=== PATIENT | male | born 1940 | race Caucasian/White ===

== ENCOUNTER 2023-08-17 16:39 | Inpatient (IN) | payer MEDICARE ==
[2023-08-17 18:20] LABS: Base Excess -12.5 mEq/L (-2.0 to +3.0); Calcium, Ionized (venous) 1.09 mmol/L (1.16-1.32); Chloride (VBG) 93 mmol/L (98-106); Hematocrit-VBG 39 % (42.0-52.0); Hemoglobin (Hb) 13.2 g/dL (12.6-17.4); Potassium (VBG) 5.23 mmol/L (3.70-5.30); Sodium 127 mmol/L (133-146)
[2023-08-17 18:24] LABS: Actual Bicarbonate (HCO3v) 11.9 mEq/L (22-28)
[2023-08-17 18:27] LABS: Hematocrit 33.2 % (42.0-52.0); Manual Diff?? YES; Mean Corpuscular HGB CONC 36.1 g/dL (32.0-36.0); Mean Corpuscular Hemoglobin 32.2 pg (27.0-31.0); Platelet Count 179 10x3/uL (130-400); RBC Distribution Width 13.9 % (11.5-14.5); Red Blood Cell (RBC) Count 3.73 mill/uL (4.70-6.10); White Blood Cell (WBC) Count 50.6 10x3/uL (4.8-10.8)
[2023-08-17 18:31] LABS: Delete Auto Diff?? YES
[2023-08-17 18:55] LABS: ALT (SGPT) 17 U/L (8-55); AST (SGOT) 29 U/L (5-34); Albumin 3.1 g/dL (3.4-4.8); Alkaline Phosphatase 94 U/L (40-110); Anion Gap 27 mmol/L (10-20); Bilirubin, Total 0.5 mg/dL (0.2-1.2); CK (CPK) 47 U/L (30-200); Calc. Creatinine Clearance 0 mL/min (70-130); Calcium 8.6 mg/dL (7.8-10.44); Chloride 93 mmol/L (98-107); Estimated GFR 4; Globulin 3.9 g/dL (2.4-3.5); Glucose 135 mg/dL (83-110); Lipase 23 U/L (8-78); Magnesium 2.7 mg/dL (1.6-2.6); Potassium 5.4 mmol/L (3.5-5.1); Sodium 124 mmol/L (136-145); Troponin I 0.038 ng/mL (< 0.028)
[2023-08-17 19:01] LABS: Carbon Dioxide 9 mmol/L (23-31); Critical Call Chemistry NUR.MH12 @1900
[2023-08-17 19:05] LABS: Band 8 % (5-11); Burr Cells MODERATE= 6-15 cells HPF (0-1); CellaVision Operator ID LAB.KB; Monocytes 10 % (0-10); Myelocyte 1 % (0-0); Neutrophil 81 % (42-75); Platelet Adequacy Comment Platelets Normal; Total Cell Count 100
[2023-08-17 19:06] LABS: BUN (Urea Nitrogen) 184 mg/dL (8.4-25.7)
[2023-08-17] MEDS ORDERED: Cefepime 2 GM VIAL ONE (20:16)
[2023-08-17] MEDS ORDERED: Vancomycin 1 GM/200 ML (FROZEN) BAG ONE (20:16)
[2023-08-17] MEDS ORDERED: Sodium Chloride 0.9% 100 ML ONE (20:17)
[2023-08-17] MEDS ORDERED: Ondansetron ODT 4 MG TAB PO PRN (21:11)
[2023-08-17] MEDS ORDERED: Acetaminophen 650 MG Suppository PR PRN (21:11)
[2023-08-17] MEDS ORDERED: Ondansetron PF 4 MG/2 ML Vial IVP PRN (21:11)
[2023-08-17] MEDS ORDERED: Bisacodyl 10 MG SUPP PR PRN (21:11)
[2023-08-17 23:30] LABS: Troponin I 0.039 ng/mL (< 0.028)
[2023-08-17] MEDS ORDERED: Vancomycin Dose by Levels Sliding Scale (Wt <71) FS SCH (23:30)
[2023-08-17 23:32] LABS: Bacteria/HPF 4+ HPF (None Seen); Bilirubin Negative (Negative); Blood, Urine 2+ (Negative); CAUTI Indications for Culture Alt mental st,lethar; Clarity Extra Turbid (Clear); Glucose, Urine (Dipstick) Normal (Negative); Ketone, Urine Negative (Negative); Leukocyte 250 Leu/uL (Negative); Nitrite Negative (Negative); Protein, Urine (Dipstick) 200 mg/dL (Neg-Trace); RBC/HPF Greater than 50 HPF (0-3); Specific Gravity, Urine 1.022 (1.002-1.036); Squamous Epithelial None Seen HPF (0-3); Urobilinogen Normal mg/dL (Less than 2); WBC/HPF Greater than 50 HPF (0-3)
[2023-08-17 23:33] LABS: Urine Culture Reflex Yes Yes
[2023-08-18] MEDS ORDERED: Dextrose 5% in Water 1,000 ML IV PRN (00:20)
[2023-08-18] MEDS ORDERED: Dextrose 50% Abboject 50 ML SYRINGE SLOW IVP PRN (00:20)
[2023-08-18] MEDS ORDERED: Glucagon 1 MG/ML KIT IM PRN (00:20)
[2023-08-18 01:14] LABS: Hemoglobin 11.1 g/dL (14.0-18.0); Manual Diff?? YES; Mean Corpuscular HGB CONC 35.8 g/dL (32.0-36.0); Mean Corpuscular Hemoglobin 31.3 pg (27.0-31.0); Mean Corpuscular Volume 87.3 fl (78.0-98.0); Mean Platelet Volume 10.8 fL (7.4-10.4); Platelet Count 141 10x3/uL (130-400); RBC Distribution Width 13.5 % (11.5-14.5); Red Blood Cell (RBC) Count 3.55 mill/uL (4.70-6.10); White Blood Cell (WBC) Count 42.2 10x3/uL (4.8-10.8)
[2023-08-18 01:17] LABS: Delete Auto Diff?? YES
[2023-08-18 01:38] LABS: Band 1 % (5-11); Burr Cells SLIGHT = 2-5 cells HPF (0-1); CellaVision Operator ID LAB.KB; Lymphocytes 1 % (21-51); Monocytes 8 % (0-10); Neutrophil 87 % (42-75); Platelet Adequacy Comment Platelets Normal; Polychromasia SLIGHT = 2-3 cells HPF (0-2); Reactive Lymphocytes 3 % (0-10); Smudge Cells 4.1 %; Total Cell Count 97
[2023-08-18 01:42] LABS: Troponin I 0.044 ng/mL (< 0.028)
[2023-08-18 01:47] LABS: Anion Gap 24 mmol/L (10-20); Calc. Creatinine Clearance 5 mL/min (70-130); Calcium 8.2 mg/dL (7.8-10.44); Carbon Dioxide 12 mmol/L (23-31); Chloride 93 mmol/L (98-107); Estimated GFR 5; Glucose 153 mg/dL (83-110); Potassium 5.3 mmol/L (3.5-5.1); Sodium 124 mmol/L (136-145)
[2023-08-18] MEDS: Sodium Bicarbonate 150 MEQ in Dextrose 5% in Water 1,000 ML IV SCH (01:56)
[2023-08-18 01:59] LABS: BUN (Urea Nitrogen) 200 mg/dL (8.4-25.7)
[2023-08-18 02:36] LABS: Creatinine, Urine Less than 20.00 mg/dL (63-166)
[2023-08-18 03:07] LABS: Protein, Urine Random Quant Greater than 2000 mg/dL (1-14)
[2023-08-18] MEDS: Piperacillin/Tazobactam 3.375 GM in Sodium Chloride 0.9% 100 ML IVPB SCH ×2 (04:36→10:36)
[2023-08-18] MEDS ORDERED: Piperacillin/Tazobactam 4.5 GM in Sodium Chloride 0.9% 100 ML IVPB SCH (06:00)
[2023-08-18] MEDS ORDERED: Vancomycin (BATCH) 1.5 GM in Premix 1 BAG IVPB SCH (09:00)
[2023-08-18] MEDS: Famotidine/PF 20 mg/2ml Vial SLOW IVP SCH (10:36)
[2023-08-18] MEDS: Enoxaparin 30 MG (0.3 mL) SYRINGE SC SCH (10:36)
[2023-08-18] MEDS: Famotidine 20 MG TAB PO SCH (10:42)
[2023-08-18 11:50] LABS: HBSAg Index 0.19 S/CO (0-0.99); Hep B Core Total Ab Non-Reactive (NonReactive); Hep B Core Total Index 0.16 S/CO (0-0.79); Hep B Surf Ag Non-Reactive S/CO (NonReactive); Hep C IgG Ab Non-Reactive S/CO (NonReactive); Hep C Index 0.09 S/CO (0-0.79)
[2023-08-18 12:01] LABS: HBSAB Concentration 51.79 mIU/mL; Hep B Surf AB Reactive (NonReactive)
[2023-08-18 16:32] LABS: Anion Gap 24 mmol/L (10-20); Calc. Creatinine Clearance 5 mL/min (70-130); Calcium 7.5 mg/dL (7.8-10.44); Carbon Dioxide 18 mmol/L (23-31); Chloride 87 mmol/L (98-107); Estimated GFR 5; Glucose 119 mg/dL (83-110); Potassium 4.8 mmol/L (3.5-5.1); Sodium 124 mmol/L (136-145)
[2023-08-18 16:43] LABS: BUN (Urea Nitrogen) 171 mg/dL (8.4-25.7)
[2023-08-19 04:28] LABS: #Monocytes 3.7 thou/uL (0.11-0.59); #Neutrophils 17.9 thou/uL (1.40-6.50); %Basophils 0.1 % (0.0-1.0); %Lymphocytes 3.9 % (21.0-51.0); %Monocytes 15.9 % (0.0-10.0); %Neutrophils 76.2 % (42.0-75.0); Hematocrit 25.7 % (42.0-52.0); Hemoglobin 9.5 g/dL (14.0-18.0); Mean Corpuscular Hemoglobin 31.6 pg (27.0-31.0); Mean Corpuscular Volume 85.4 fl (78.0-98.0); Mean Platelet Volume 11.2 fL (7.4-10.4); Platelet Count 113 10x3/uL (130-400); RBC Distribution Width 13.2 % (11.5-14.5); Red Blood Cell (RBC) Count 3.01 mill/uL (4.70-6.10); White Blood Cell (WBC) Count 23.5 10x3/uL (4.8-10.8)
[2023-08-19 04:46] LABS: Anion Gap 18 mmol/L (10-20); Calc. Creatinine Clearance 7 mL/min (70-130); Calcium 7.4 mg/dL (7.8-10.44); Carbon Dioxide 21 mmol/L (23-31); Chloride 90 mmol/L (98-107); Estimated GFR 6; Glucose 96 mg/dL (83-110); Potassium 4.3 mmol/L (3.5-5.1); Sodium 125 mmol/L (136-145)
[2023-08-19 04:57] LABS: BUN (Urea Nitrogen) 140 mg/dL (8.4-25.7)
[2023-08-19 05:00] LABS: Anisocytosis SLIGHT = 6-15 cells HPF (0-5); CellaVision Operator ID lab.dlt; Platelet Adequacy Comment Platelets Decreased; Polychromasia SLIGHT = 2-3 cells HPF (0-2); Schistocytes SLIGHT = 2-5 cells HPF (0-1)
[2023-08-19] MEDS: Heparin 5,000 UNITS/ML VIAL SC SCH (08:46)
[2023-08-19] MEDS ORDERED: Famotidine 20 MG TAB PO SCH (09:00)
[2023-08-19] MEDS: Midodrine HCl 5 MG TAB PO SCH ×2 (10:23→15:40)
[2023-08-19] MEDS: Phenol 177 ML BOT PO PRN (13:20)
[2023-08-19] MEDS: Piperacillin/Tazobactam 3.375 GM in Sodium Chloride 0.9% 100 ML IVPB SCH (13:20)
[2023-08-19] MEDS ORDERED: Melatonin 3 MG TAB PO SCH (21:00)
[2023-08-19] MEDS: Famotidine/PF 20 mg/2ml Vial SLOW IVP SCH (23:13)
[2023-08-19] MEDS: Famotidine 20 MG TAB PO SCH (23:14)
[2023-08-20 05:26] LABS: #Eosinphils 0.1 thou/uL (0.0-0.7); #Monocytes 2.2 thou/uL (0.11-0.59); #Neutrophils 17.5 thou/uL (1.40-6.50); %Basophils 0.2 % (0.0-1.0); %Eosinophils 0.4 % (0.0-10.0); %Lymphocytes 3.6 % (21.0-51.0); %Monocytes 10.1 % (0.0-10.0); %Neutrophils 81.6 % (42.0-75.0); Hematocrit 23.1 % (42.0-52.0); Hemoglobin 8.6 g/dL (14.0-18.0); Mean Corpuscular HGB CONC 37.2 g/dL (32.0-36.0); Mean Corpuscular Hemoglobin 30.7 pg (27.0-31.0); Mean Corpuscular Volume 82.5 fl (78.0-98.0); Mean Platelet Volume 10.8 fL (7.4-10.4); White Blood Cell (WBC) Count 21.5 10x3/uL (4.8-10.8)
[2023-08-20 05:30] LABS: Platelet Count 65 10x3/uL (130-400)
[2023-08-20 05:44] LABS: Anion Gap 15 mmol/L (10-20); BUN (Urea Nitrogen) 100 mg/dL (8.4-25.7); Calc. Creatinine Clearance 9 mL/min (70-130); Calcium 7.1 mg/dL (7.8-10.44); Carbon Dioxide 22 mmol/L (23-31); Chloride 96 mmol/L (98-107); Estimated GFR 8; Glucose 88 mg/dL (83-110); Potassium 4.1 mmol/L (3.5-5.1); Sodium 129 mmol/L (136-145)
[2023-08-20] MEDS: Lactated Ringer's 500 ML IV SCH (11:04)
[2023-08-21 04:19] LABS: Hematocrit 24.4 % (42.0-52.0); Manual Diff?? YES; Mean Corpuscular HGB CONC 36.9 g/dL (32.0-36.0); Mean Corpuscular Hemoglobin 31.1 pg (27.0-31.0); Mean Corpuscular Volume 84.4 fl (78.0-98.0); Mean Platelet Volume 11.9 fL (7.4-10.4); RBC Distribution Width 13.9 % (11.5-14.5); Red Blood Cell (RBC) Count 2.89 mill/uL (4.70-6.10); White Blood Cell (WBC) Count 22.8 10x3/uL (4.8-10.8)
[2023-08-21 04:22] LABS: Platelet Count 60 10x3/uL (130-400)
[2023-08-21 04:23] LABS: Delete Auto Diff?? YES
[2023-08-21 04:38] LABS: Anion Gap 15 mmol/L (10-20); BUN (Urea Nitrogen) 64 mg/dL (8.4-25.7); Calc. Creatinine Clearance 11 mL/min (70-130); Calcium 7.3 mg/dL (7.8-10.44); Carbon Dioxide 22 mmol/L (23-31); Chloride 98 mmol/L (98-107); Estimated GFR 11; Glucose 100 mg/dL (83-110); Sodium 131 mmol/L (136-145)
[2023-08-21 05:04] LABS: Anisocytosis SLIGHT = 6-15 cells HPF (0-5); Band 2 % (5-11); CellaVision Operator ID lab.sh2; Hypochromia SLIGHT = 6-15 cells HPF (0-5); Lymphocytes 3 % (21-51); Macrocytosis SLIGHT = 6-15 cells HPF (0-5); Monocytes 16 % (0-10); Neutrophil 79 % (42-75); Platelet Adequacy Comment Platelets Decreased; Polychromasia SLIGHT = 2-3 cells HPF (0-2); Target Cells MODERATE= 6-15 cells HPF (0-1); Total Cell Count 100
[2023-08-21] MEDS: Meropenem 1 GM in Sodium Chloride 0.9% 100 ML IVPB SCH (10:02)
[2023-08-21] MEDS: FLU VACC QS2023(65UP)/MF59C/PF 60 MCG/0.5 ML SYRINGE IM ONE (10:03)
[2023-08-21] MEDS ORDERED: Meropenem 1 GM in Sodium Chloride 0.9% 100 ML IVPB SCH (14:00)
[2023-08-21] MEDS: EPOETIN ALFA-EPBX (ESRD) 2,000 UNITS/ML VIAL SC SCH (22:03)
[2023-08-21] MEDS: EPOETIN ALFA-EPBX (ESRD) 3,000 UNITS/ML VIAL SC SCH (22:03)
[2023-08-21] MEDS: Epoetin (ESRD) 20,000 UNITS/ML MDV SC SCH (23:55)
[2023-08-22 04:32] LABS: Hematocrit 26.7 % (42.0-52.0); Hemoglobin 9.6 g/dL (14.0-18.0); Manual Diff?? YES; Mean Corpuscular Hemoglobin 30.3 pg (27.0-31.0); Mean Corpuscular Volume 84.2 fl (78.0-98.0); Mean Platelet Volume 11.5 fL (7.4-10.4); RBC Distribution Width 14.5 % (11.5-14.5); Red Blood Cell (RBC) Count 3.17 mill/uL (4.70-6.10); White Blood Cell (WBC) Count 26.1 10x3/uL (4.8-10.8)
[2023-08-22 04:36] LABS: Delete Auto Diff?? YES; Platelet Count 78 10x3/uL (130-400)
[2023-08-22 04:50] LABS: Anion Gap 16 mmol/L (10-20); BUN (Urea Nitrogen) 75 mg/dL (8.4-25.7); Calc. Creatinine Clearance 9 mL/min (70-130); Calcium 7.5 mg/dL (7.8-10.44); Carbon Dioxide 22 mmol/L (23-31); Chloride 96 mmol/L (98-107); Estimated GFR 8; Glucose 90 mg/dL (83-110); Potassium 4.2 mmol/L (3.5-5.1); Sodium 130 mmol/L (136-145)
[2023-08-22 05:08] LABS: Band 7 % (5-11); CellaVision Operator ID LAB.CLH1; Hypochromia SLIGHT = 6-15 cells HPF (0-5); Lymphocytes 6 % (21-51); Metamyelocyte 2 % (0-0); Monocytes 15 % (0-10); Neutrophil 67 % (42-75); Platelet Adequacy Comment Platelets Decreased; Polychromasia MODERATE = 3-4 cells HPF (0-2); Reactive Lymphocytes 4 % (0-10); Target Cells SLIGHT = 2-5 cells HPF (0-1); Total Cell Count 103
[2023-08-22] MEDS ORDERED: Heparin 10,000 UNITS/ 10 ML VIAL ONE (11:31)
[2023-08-22] MEDS ORDERED: Iopamidol-370 76% 500 ML MDV (1 ML CHARGE) ONE (12:14)
[2023-08-22] MEDS: Meropenem 500 MG in Sodium Chloride 0.9% 100 ML IVPB SCH (13:51)
[2023-08-22] MEDS ORDERED: Iopamidol-370 76% 500 ML BOT (X-RAY USE) FS ONE (13:58)
[2023-08-23] MEDS: Amiodarone 150 MG, Admixture Fee 1 EACH in Dextrose 5% in Water 100 ML IVPB SCH (00:55)
[2023-08-23] MEDS: Amiodarone 450 MG in Dextrose 5% in Water 250 ML IVPB SCH (00:56)
[2023-08-23] MEDS: Albumin 25% 25 GM (100 mL) BOT IVPB SCH (02:26)
[2023-08-23 04:42] LABS: Hematocrit 25.4 % (42.0-52.0); Hemoglobin 9.1 g/dL (14.0-18.0); Manual Diff?? YES; Mean Corpuscular HGB CONC 35.8 g/dL (32.0-36.0); Mean Corpuscular Hemoglobin 31.2 pg (27.0-31.0); Mean Platelet Volume 11.6 fL (7.4-10.4); Platelet Count 97 10x3/uL (130-400); RBC Distribution Width 14.6 % (11.5-14.5); Red Blood Cell (RBC) Count 2.92 mill/uL (4.70-6.10); White Blood Cell (WBC) Count 23.7 10x3/uL (4.8-10.8)
[2023-08-23 04:45] LABS: Anion Gap 13 mmol/L (10-20); BUN (Urea Nitrogen) 55 mg/dL (8.4-25.7); Calc. Creatinine Clearance 11 mL/min (70-130); Calcium 7.7 mg/dL (7.8-10.44); Carbon Dioxide 22 mmol/L (23-31); Chloride 98 mmol/L (98-107); Estimated GFR 10; Glucose 97 mg/dL (83-110); Potassium 3.7 mmol/L (3.5-5.1); Sodium 129 mmol/L (136-145)
[2023-08-23 04:47] LABS: Delete Auto Diff?? YES
[2023-08-23 05:37] LABS: Anisocytosis SLIGHT = 6-15 cells HPF (0-5); Band 1 % (5-11); CellaVision Operator ID lab.sh2; Large Platelets 4.9 % (0-5); Lymphocytes 10 % (21-51); Monocytes 22 % (0-10); Neutrophil 66 % (42-75); Platelet Adequacy Comment Platelets Decreased; Polychromasia SLIGHT = 2-3 cells HPF (0-2); Smudge Cells 6.8 %; Total Cell Count 103
[2023-08-24 04:55] LABS: Hematocrit 27.3 % (42.0-52.0); Hemoglobin 9.5 g/dL (14.0-18.0); Manual Diff?? YES; Mean Corpuscular HGB CONC 34.8 g/dL (32.0-36.0); Mean Corpuscular Hemoglobin 30.9 pg (27.0-31.0); Mean Corpuscular Volume 88.9 fl (78.0-98.0); Mean Platelet Volume 11.6 fL (7.4-10.4); Platelet Count 123 10x3/uL (130-400); RBC Distribution Width 14.3 % (11.5-14.5); Red Blood Cell (RBC) Count 3.07 mill/uL (4.70-6.10); White Blood Cell (WBC) Count 19.9 10x3/uL (4.8-10.8)
[2023-08-24 04:59] LABS: Delete Auto Diff?? YES
[2023-08-24 05:21] LABS: Troponin I 0.023 ng/mL (< 0.028)
[2023-08-24 05:31] LABS: Anion Gap 16 mmol/L (10-20); BUN (Urea Nitrogen) 63 mg/dL (8.4-25.7); Calc. Creatinine Clearance 10 mL/min (70-130); Carbon Dioxide 18 mmol/L (23-31); Chloride 97 mmol/L (98-107); Estimated GFR 9; Glucose 95 mg/dL (83-110); Magnesium 1.8 mg/dL (1.6-2.6); Potassium 3.8 mmol/L (3.5-5.1); Sodium 127 mmol/L (136-145)
[2023-08-24 05:58] LABS: Band 5 % (5-11); CellaVision Operator ID LAB.CLH1; Eosinophils 1 % (0-10); Hypochromia SLIGHT = 6-15 cells HPF (0-5); Lymphocytes 9 % (21-51); Metamyelocyte 6 % (0-0); Monocytes 20 % (0-10); Myelocyte 2 % (0-0); Neutrophil 56 % (42-75); Platelet Adequacy Comment Platelets Decreased; Polychromasia SLIGHT = 2-3 cells HPF (0-2); RBC Morphology Within Normal Limits; Reactive Lymphocytes 1 % (0-10); Target Cells SLIGHT = 2-5 cells HPF (0-1); Total Cell Count 100
[2023-08-24] MEDS ORDERED: Activase 2 MG VIAL CATH SCH (09:00)
[2023-08-24] MEDS ORDERED: Sterile Water 10 ML VIAL IVP SCH (09:00)
[2023-08-24] MEDS ORDERED: Heparin 10,000 UNITS/ 10 ML VIAL ONE (09:04)
[2023-08-24 15:34] LABS: Anion Gap 10 mmol/L (10-20); BUN (Urea Nitrogen) 27 mg/dL (8.4-25.7); Calc. Creatinine Clearance 20 mL/min (70-130); Calcium 8.2 mg/dL (7.8-10.44); Carbon Dioxide 25 mmol/L (23-31); Chloride 101 mmol/L (98-107); Estimated GFR 20; Glucose 101 mg/dL (83-110); Potassium 3.4 mmol/L (3.5-5.1); Sodium 133 mmol/L (136-145)
[2023-08-24] MEDS: Meropenem 500 MG in Sodium Chloride 0.9% 100 ML IVPB SCH (16:43)
[2023-08-25 05:01] LABS: Hematocrit 29.6 % (42.0-52.0); Hemoglobin 9.9 g/dL (14.0-18.0); Manual Diff?? YES; Mean Corpuscular HGB CONC 33.4 g/dL (32.0-36.0); Mean Corpuscular Hemoglobin 30.2 pg (27.0-31.0); Mean Corpuscular Volume 90.2 fl (78.0-98.0); Mean Platelet Volume 11.4 fL (7.4-10.4); Platelet Count 125 10x3/uL (130-400); RBC Distribution Width 14.3 % (11.5-14.5); Red Blood Cell (RBC) Count 3.28 mill/uL (4.70-6.10); White Blood Cell (WBC) Count 15.9 10x3/uL (4.8-10.8)
[2023-08-25 05:09] LABS: Delete Auto Diff?? YES
[2023-08-25 05:29] LABS: Anion Gap 13 mmol/L (10-20); BUN (Urea Nitrogen) 34 mg/dL (8.4-25.7); Calc. Creatinine Clearance 14 mL/min (70-130); Carbon Dioxide 23 mmol/L (23-31); Chloride 101 mmol/L (98-107); Estimated GFR 13; Glucose 90 mg/dL (83-110); Potassium 3.7 mmol/L (3.5-5.1); Sodium 133 mmol/L (136-145)
[2023-08-25 05:49] LABS: Anisocytosis SLIGHT = 6-15 cells HPF (0-5); Band 1 % (5-11); CellaVision Operator ID lab.sh2; Hypochromia MODERATE=16-30 cells HPF (0-5); Lymphocytes 12 % (21-51); Macrocytosis SLIGHT = 6-15 cells HPF (0-5); Monocytes 18 % (0-10); Neutrophil 69 % (42-75); Platelet Adequacy Comment Platelets Decreased; Polychromasia MODERATE = 3-4 cells HPF (0-2); Total Cell Count 100
[2023-08-25] MEDS: Acetaminophen 325 MG TAB PO PRN (08:46)
[2023-08-25] MEDS ORDERED: Lidocaine 2% PF 5 ML VIAL ONE (14:22)
[2023-08-25] MEDS ORDERED: Heparin 10,000 UNITS/ 10 ML VIAL ONE (14:22)
[2023-08-25] MEDS ORDERED: EPINEPHrine 1 MG/ML VIAL ONE (14:22)
[2023-08-25] MEDS ORDERED: Bupivacaine PF 0.5% 30 ML VIAL ONE (14:22)
[2023-08-25] MEDS ORDERED: fentaNYL 50 mcg/mL 1 mL Vial ONE (14:42)
[2023-08-25] MEDS ORDERED: PROPOFOL 20 ML ONE ×2 (14:43)
[2023-08-25] MEDS ORDERED: Lidocaine 1% (PF) 30 ML VIAL ONE (17:37)
[2023-08-26] MEDS: Sodium Chloride 0.9% 500 ML IV SCH (00:11)
[2023-08-26 05:54] LABS: Hematocrit 27.7 % (42.0-52.0); Hemoglobin 8.5 g/dL (14.0-18.0); Manual Diff?? YES; Mean Corpuscular HGB CONC 30.7 g/dL (32.0-36.0); Mean Corpuscular Hemoglobin 30.7 pg (27.0-31.0); Mean Platelet Volume 11.2 fL (7.4-10.4); Platelet Count 120 10x3/uL (130-400); RBC Distribution Width 14.6 % (11.5-14.5); Red Blood Cell (RBC) Count 2.77 mill/uL (4.70-6.10); White Blood Cell (WBC) Count 17.1 10x3/uL (4.8-10.8)
[2023-08-26 06:00] LABS: Delete Auto Diff?? YES
[2023-08-26 06:19] LABS: Anisocytosis SLIGHT = 6-15 cells HPF (0-5); Band 2 % (5-11); CellaVision Operator ID LAB.CLH1; Hypochromia SLIGHT = 6-15 cells HPF (0-5); Large Platelets 5.9 % (0-5); Lymphocytes 7 % (21-51); Macrocytosis SLIGHT = 6-15 cells HPF (0-5); Monocytes 17 % (0-10); Myelocyte 1 % (0-0); Neutrophil 73 % (42-75); Platelet Adequacy Comment Platelets Normal; Polychromasia SLIGHT = 2-3 cells HPF (0-2); Promyelocytes 1 % (0-0); Total Cell Count 102
[2023-08-26 06:22] LABS: Anion Gap 17 mmol/L (10-20); BUN (Urea Nitrogen) 42 mg/dL (8.4-25.7); Calc. Creatinine Clearance 11 mL/min (70-130); Calcium 7.9 mg/dL (7.8-10.44); Carbon Dioxide 18 mmol/L (23-31); Chloride 102 mmol/L (98-107); Estimated GFR 10; Glucose 90 mg/dL (83-110); Potassium 4.5 mmol/L (3.5-5.1); Sodium 132 mmol/L (136-145)
[2023-08-26] MEDS ORDERED: Heparin 10,000 UNITS/ 10 ML VIAL ONE ×2 (09:42→14:35)
[2023-08-26] MEDS ORDERED: Lidocaine 2% PF 100 mg/5 ml Syringe ONE (14:35)
[2023-08-26] MEDS ORDERED: Bupivacaine PF 0.5% 30 ML VIAL ONE (14:36)
[2023-08-26] MEDS ORDERED: EPINEPHrine 1 MG/ML VIAL ONE (14:36)
[2023-08-26] MEDS ORDERED: fentaNYL PF 100 MCG/2 ML SYRINGE ONE (14:40)
[2023-08-26] MEDS ORDERED: ePHEDrine Sulfate 50 MG/10 ML VIAL ONE (14:40)
[2023-08-26] MEDS ORDERED: PHENYLEPHRINE-NS 100 MCG/ML 10 ML SYRINGE ONE (14:40)
[2023-08-26] MEDS ORDERED: Lidocaine 2% PF 5 ML VIAL ONE (14:40)
[2023-08-26] MEDS ORDERED: PROPOFOL 20 ML ONE (14:40)
[2023-08-26] MEDS ORDERED: CEFAZOLIN 2 GM VIAL ONE (14:58)
[2023-08-26] MEDS ORDERED: Sodium Chloride 0.9% 100 ML ONE (14:59)
[2023-08-26] MEDS ORDERED: traMADol HCl 50 MG TAB PO PRN ×2 (16:05→16:20)
[2023-08-26] MEDS: Acetaminophen 500 MG TAB PO SCH ×2 (18:27→22:17)
[2023-08-27 10:43] LABS: #Monocytes 2.7 thou/uL (0.11-0.59); #Neutrophils 9.4 thou/uL (1.40-6.50); %Basophils 0.1 % (0.0-1.0); %Eosinophils 0.1 % (0.0-10.0); %Lymphocytes 9.5 % (21.0-51.0); %Monocytes 18.9 % (0.0-10.0); %Neutrophils 66.5 % (42.0-75.0); Hematocrit 24.2 % (42.0-52.0); Hemoglobin 8.1 g/dL (14.0-18.0); Mean Corpuscular HGB CONC 33.5 g/dL (32.0-36.0); Mean Corpuscular Hemoglobin 31.5 pg (27.0-31.0); Mean Corpuscular Volume 94.2 fl (78.0-98.0); Platelet Count 135 10x3/uL (130-400); RBC Distribution Width 14.5 % (11.5-14.5); Red Blood Cell (RBC) Count 2.57 mill/uL (4.70-6.10); White Blood Cell (WBC) Count 14.1 10x3/uL (4.8-10.8)
[2023-08-27 11:04] LABS: Anion Gap 14 mmol/L (10-20); BUN (Urea Nitrogen) 25 mg/dL (8.4-25.7); Calc. Creatinine Clearance 15 mL/min (70-130); Calcium 7.9 mg/dL (7.8-10.44); Carbon Dioxide 25 mmol/L (23-31); Chloride 98 mmol/L (98-107); Estimated GFR 14; Glucose 147 mg/dL (83-110); Potassium 3.7 mmol/L (3.5-5.1); Sodium 133 mmol/L (136-145)
[2023-08-27] MEDS: Midodrine HCl 5 MG TAB PO SCH (13:47)
[2023-08-28 05:23] LABS: Hematocrit 23.6 % (42.0-52.0); Hemoglobin 7.9 g/dL (14.0-18.0); Manual Diff?? YES; Mean Corpuscular HGB CONC 33.5 g/dL (32.0-36.0); Mean Corpuscular Hemoglobin 30.9 pg (27.0-31.0); Mean Corpuscular Volume 92.2 fl (78.0-98.0); Platelet Count 127 10x3/uL (130-400); RBC Distribution Width 14.6 % (11.5-14.5); Red Blood Cell (RBC) Count 2.56 mill/uL (4.70-6.10); White Blood Cell (WBC) Count 14.3 10x3/uL (4.8-10.8)
[2023-08-28 05:38] LABS: Anion Gap 12 mmol/L (10-20); BUN (Urea Nitrogen) 38 mg/dL (8.4-25.7); Calc. Creatinine Clearance 12 mL/min (70-130); Calcium 7.8 mg/dL (7.8-10.44); Carbon Dioxide 23 mmol/L (23-31); Chloride 99 mmol/L (98-107); Estimated GFR 11; Glucose 102 mg/dL (83-110); Potassium 3.8 mmol/L (3.5-5.1); Sodium 130 mmol/L (136-145)
[2023-08-28 05:46] LABS: Delete Auto Diff?? YES
[2023-08-28 07:00] LABS: Band 7 % (5-11); Lymphocytes 12 % (21-51); Monocytes 29 % (0-10); Myelocyte 1 % (0-0); Neutrophil 51 % (42-75)
[2023-08-28] MEDS ORDERED: Heparin 10,000 UNITS/ 10 ML VIAL ONE (09:48)
[2023-08-28] MEDS: EPOETIN SC SCH (19:42)
[2023-08-29] MEDS ORDERED: Tuberculin PPD 0.1 ML VIAL I-DERMAL SCH ×2 (08:00→08:15)
[2023-08-29] MEDS: Tuberculin PPD 0.1 ML VIAL I-DERMAL SCH (11:42)
[2023-08-30] MEDS ORDERED: Bupivacaine/Epinephrine 0.25% 30 ML VIAL IJ SCH (08:15)
[2023-08-30] MEDS ORDERED: Bupivacaine 0.25% HCL 30 ML VIAL FS SCH (08:30)
[2023-08-30] MEDS ORDERED: Heparin 10,000 UNITS/ 10 ML VIAL ONE (09:28)
[2023-08-30 10:41] LABS: Hemoglobin 7.9 g/dL (14.0-18.0); Manual Diff?? YES; Mean Corpuscular HGB CONC 32.9 g/dL (32.0-36.0); Mean Corpuscular Hemoglobin 30.9 pg (27.0-31.0); Mean Corpuscular Volume 93.8 fl (78.0-98.0); Mean Platelet Volume 10.9 fL (7.4-10.4); Platelet Count 111 10x3/uL (130-400); RBC Distribution Width 14.4 % (11.5-14.5); Red Blood Cell (RBC) Count 2.56 mill/uL (4.70-6.10); White Blood Cell (WBC) Count 13.2 10x3/uL (4.8-10.8)
[2023-08-30 10:45] LABS: Delete Auto Diff?? YES
[2023-08-30 11:04] LABS: Anion Gap 15 mmol/L (10-20); BUN (Urea Nitrogen) 44 mg/dL (8.4-25.7); Calc. Creatinine Clearance 11 mL/min (70-130); Calcium 7.9 mg/dL (7.8-10.44); Carbon Dioxide 22 mmol/L (23-31); Chloride 97 mmol/L (98-107); Estimated GFR 11; Glucose 110 mg/dL (83-110); Potassium 3.2 mmol/L (3.5-5.1); Sodium 131 mmol/L (136-145)
[2023-08-30 11:47] LABS: CellaVision Operator ID LAB.KW3; Lymphocytes 6 % (21-51); Monocytes 13 % (0-10); Neutrophil 81 % (42-75); Platelet Adequacy Comment Platelets Decreased; RBC Morphology Within Normal Limits; Total Cell Count 99
[2023-08-31 09:58] LABS: #Monocytes 2.2 thou/uL (0.11-0.59); %Basophils 0.1 % (0.0-1.0); %Eosinophils 0.2 % (0.0-10.0); %Lymphocytes 17.3 % (21.0-51.0); %Neutrophils 59.3 % (42.0-75.0); Hematocrit 25.6 % (42.0-52.0); Hemoglobin 8.5 g/dL (14.0-18.0); Mean Corpuscular HGB CONC 33.2 g/dL (32.0-36.0); Mean Corpuscular Hemoglobin 31.3 pg (27.0-31.0); Mean Corpuscular Volume 94.1 fl (78.0-98.0); Mean Platelet Volume 11.7 fL (7.4-10.4); Platelet Count 117 10x3/uL (130-400); RBC Distribution Width 14.6 % (11.5-14.5); Red Blood Cell (RBC) Count 2.72 mill/uL (4.70-6.10); White Blood Cell (WBC) Count 11.8 10x3/uL (4.8-10.8)
[2023-08-31 10:25] LABS: Anion Gap 19 mmol/L (10-20); BUN (Urea Nitrogen) 27 mg/dL (8.4-25.7); Calc. Creatinine Clearance 16 mL/min (70-130); Calcium 8.5 mg/dL (7.8-10.44); Carbon Dioxide 21 mmol/L (23-31); Chloride 99 mmol/L (98-107); Estimated GFR 16; Glucose 112 mg/dL (83-110); Potassium 3.6 mmol/L (3.5-5.1); Sodium 135 mmol/L (136-145)
[2023-08-31] MEDS: READ PPD TEST SITE PO SCH (16:33)
[2023-09-01 05:17] LABS: Hematocrit 20.8 % (42.0-52.0); Hemoglobin 7.1 g/dL (14.0-18.0); Manual Diff?? YES; Mean Corpuscular HGB CONC 34.1 g/dL (32.0-36.0); Mean Corpuscular Hemoglobin 30.6 pg (27.0-31.0); Mean Platelet Volume 11.4 fL (7.4-10.4); Platelet Count 118 10x3/uL (130-400); RBC Distribution Width 14.3 % (11.5-14.5); Red Blood Cell (RBC) Count 2.32 mill/uL (4.70-6.10); White Blood Cell (WBC) Count 10.8 10x3/uL (4.8-10.8)
[2023-09-01 05:42] LABS: Anion Gap 14 mmol/L (10-20); BUN (Urea Nitrogen) 46 mg/dL (8.4-25.7); Calc. Creatinine Clearance 12 mL/min (70-130); Calcium 7.8 mg/dL (7.8-10.44); Carbon Dioxide 23 mmol/L (23-31); Chloride 98 mmol/L (98-107); Estimated GFR 11; Glucose 82 mg/dL (83-110); Potassium 3.6 mmol/L (3.5-5.1); Sodium 131 mmol/L (136-145)
[2023-09-01 06:30] LABS: Delete Auto Diff?? YES
[2023-09-01 07:21] LABS: Anisocytosis MARKED = >30 cells HPF (0-5); Band 2 % (5-11); CellaVision Operator ID LAB.KW3; Lymphocytes 11 % (21-51); Monocytes 16 % (0-10); Neutrophil 68 % (42-75); Platelet Adequacy Comment Platelets Decreased; Polychromasia SLIGHT = 2-3 cells HPF (0-2); Reactive Lymphocytes 2 % (0-10); Target Cells SLIGHT = 2-5 cells HPF (0-1); Total Cell Count 100
[2023-09-01 08:23] LABS: Mean Corpuscular Volume 89.7 fl (78.0-98.0)
[2023-09-01] MEDS ORDERED: Heparin 10,000 UNITS/ 10 ML VIAL ONE (08:57)
[2023-09-02 04:33] LABS: Hematocrit 21.7 % (42.0-52.0); Hemoglobin 7.2 g/dL (14.0-18.0); Manual Diff?? YES; Mean Corpuscular HGB CONC 33.2 g/dL (32.0-36.0); Mean Corpuscular Hemoglobin 29.9 pg (27.0-31.0); Mean Platelet Volume 11.6 fL (7.4-10.4); Platelet Count 106 10x3/uL (130-400); RBC Distribution Width 14.6 % (11.5-14.5); Red Blood Cell (RBC) Count 2.41 mill/uL (4.70-6.10); White Blood Cell (WBC) Count 9.8 10x3/uL (4.8-10.8)
[2023-09-02 04:35] LABS: Delete Auto Diff?? YES
[2023-09-02 04:58] LABS: Band 8 % (5-11); CellaVision Operator ID LAB.CLH1; Hypochromia SLIGHT = 6-15 cells HPF (0-5); Large Platelets 7.7 % (0-5); Lymphocytes 13 % (21-51); Metamyelocyte 2 % (0-0); Monocytes 16 % (0-10); Neutrophil 62 % (42-75); Platelet Adequacy Comment Platelets Normal; Polychromasia SLIGHT = 2-3 cells HPF (0-2); Target Cells SLIGHT = 2-5 cells HPF (0-1); Total Cell Count 117
[2023-09-02 04:59] LABS: Anion Gap 11 mmol/L (10-20); BUN (Urea Nitrogen) 36 mg/dL (8.4-25.7); Calc. Creatinine Clearance 16 mL/min (70-130); Calcium 7.9 mg/dL (7.8-10.44); Carbon Dioxide 26 mmol/L (23-31); Chloride 99 mmol/L (98-107); Estimated GFR 16; Glucose 115 mg/dL (83-110); Potassium 3.2 mmol/L (3.5-5.1); Sodium 133 mmol/L (136-145)
[2023-09-03] MEDS ORDERED: Heparin 10,000 UNITS/ 10 ML VIAL ONE (12:08)
[2023-09-03 12:11] LABS: Hematocrit 21.6 % (42.0-52.0); Hemoglobin 7.4 g/dL (14.0-18.0); Manual Diff?? YES; Mean Corpuscular HGB CONC 34.3 g/dL (32.0-36.0); Mean Corpuscular Hemoglobin 31.1 pg (27.0-31.0); Mean Corpuscular Volume 90.8 fl (78.0-98.0); Mean Platelet Volume 11.4 fL (7.4-10.4); RBC Distribution Width 14.5 % (11.5-14.5); Red Blood Cell (RBC) Count 2.38 mill/uL (4.70-6.10)
[2023-09-03 12:13] LABS: Delete Auto Diff?? YES; Platelet Count 118 10x3/uL (130-400)
[2023-09-03 12:27] LABS: Anion Gap 13 mmol/L (10-20); BUN (Urea Nitrogen) 17 mg/dL (8.4-25.7); Calc. Creatinine Clearance 29 mL/min (70-130); Calcium 8.1 mg/dL (7.8-10.44); Carbon Dioxide 27 mmol/L (23-31); Chloride 96 mmol/L (98-107); Estimated GFR 32; Glucose 110 mg/dL (83-110); Potassium 3.1 mmol/L (3.5-5.1); Sodium 133 mmol/L (136-145)
[2023-09-03 12:36] LABS: CellaVision Operator ID LAB.MJL; Eosinophils 4 % (0-10); Lymphocytes 4 % (21-51); Monocytes 23 % (0-10); Neutrophil 69 % (42-75); Platelet Adequacy Comment Platelets Decreased; Polychromasia SLIGHT = 2-3 cells HPF (0-2); Total Cell Count 26
[2023-09-04 05:12] LABS: Hematocrit 19.9 % (42.0-52.0); Hemoglobin 6.7 g/dL (14.0-18.0); Manual Diff?? YES; Mean Corpuscular HGB CONC 33.7 g/dL (32.0-36.0); Mean Corpuscular Hemoglobin 30.3 pg (27.0-31.0); Mean Platelet Volume 11.3 fL (7.4-10.4); Platelet Count 127 10x3/uL (130-400); RBC Distribution Width 14.5 % (11.5-14.5); Red Blood Cell (RBC) Count 2.21 mill/uL (4.70-6.10); White Blood Cell (WBC) Count 13.2 10x3/uL (4.8-10.8)
[2023-09-04 05:20] LABS: Delete Auto Diff?? YES
[2023-09-04 05:44] LABS: CellaVision Operator ID LAB.CLH1; Hypochromia SLIGHT = 6-15 cells HPF (0-5); Large Platelets 4.9 % (0-5); Lymphocytes 8 % (21-51); Metamyelocyte 1 % (0-0); Monocytes 20 % (0-10); Myelocyte 1 % (0-0); Neutrophil 65 % (42-75); Platelet Adequacy Comment Platelets Decreased; Polychromasia SLIGHT = 2-3 cells HPF (0-2); Promyelocytes 1 % (0-0); Reactive Lymphocytes 3 % (0-10); Target Cells SLIGHT = 2-5 cells HPF (0-1); Total Cell Count 103
[2023-09-04 05:49] LABS: Anion Gap 12 mmol/L (10-20); BUN (Urea Nitrogen) 31 mg/dL (8.4-25.7); CRP (Inflammatory) 13.47 mg/dL (= or < 0.5); Calc. Creatinine Clearance 19 mL/min (70-130); Carbon Dioxide 25 mmol/L (23-31); Chloride 98 mmol/L (98-107); Estimated GFR 19; Glucose 86 mg/dL (83-110); Potassium 3.5 mmol/L (3.5-5.1); Sodium 131 mmol/L (136-145)
[2023-09-04] MEDS: Metoprolol Tartrate 25 MG TAB PO SCH (09:32)
[2023-09-05 07:22] LABS: Hematocrit 22.3 % (42.0-52.0); Hemoglobin 7.5 g/dL (14.0-18.0); Manual Diff?? YES; Mean Corpuscular HGB CONC 33.6 g/dL (32.0-36.0); Mean Corpuscular Hemoglobin 30.6 pg (27.0-31.0); Mean Platelet Volume 11.7 fL (7.4-10.4); Platelet Count 175 10x3/uL (130-400); RBC Distribution Width 14.6 % (11.5-14.5); Red Blood Cell (RBC) Count 2.45 mill/uL (4.70-6.10); White Blood Cell (WBC) Count 18.5 10x3/uL (4.8-10.8)
[2023-09-05 07:25] LABS: Delete Auto Diff?? YES
[2023-09-05 07:53] LABS: Band 2 % (5-11); Burr Cells SLIGHT = 2-5 cells HPF (0-1); CellaVision Operator ID LAB.KW3; Hypochromia MODERATE=16-30 cells HPF (0-5); Lymphocytes 6 % (21-51); Monocytes 14 % (0-10); Neutrophil 77 % (42-75); Platelet Adequacy Comment Platelets Normal; Poikilocytosis SLIGHT = 6-15 cells HPF (0-5); Polychromasia SLIGHT = 2-3 cells HPF (0-2); Reactive Lymphocytes 1 % (0-10); Total Cell Count 100
[2023-09-05 08:20] LABS: Anion Gap 15 mmol/L (10-20); BUN (Urea Nitrogen) 41 mg/dL (8.4-25.7); Calc. Creatinine Clearance 15 mL/min (70-130); Calcium 8.4 mg/dL (7.8-10.44); Carbon Dioxide 23 mmol/L (23-31); Chloride 96 mmol/L (98-107); Estimated GFR 14; Glucose 81 mg/dL (83-110); Potassium 3.8 mmol/L (3.5-5.1); Sodium 130 mmol/L (136-145)
[2023-09-05 12:12] VITALS: BMI 22.0
[2023-09-05] MEDS: Activase 2 MG VIAL CATH SCH (19:48)
[2023-09-05] MEDS: Sterile Water 10 ML VIAL IVP SCH (19:48)
[2023-09-06 04:04] VITALS: TEMP 98.1
[2023-09-06 08:12] VITALS: BP 125/60
== END 2023-09-06 15:30 | disposition home or self-care (01) | DRG 698 ==
LOC: ERS 16:39 → IMCU/EMU 20:13 → 2NO 08-23 20:37
PROVIDERS: ADMIT Student in an Organized Health Care Education/Training Program; ATTEND Hospitalist
PROC: 3E03329 Introduction of Other Anti-infective into Peripheral Vein, Percutaneous Approach (ICD-10-PCS; 2023-08-17)
PROC: 02HV33Z Insertion of Infusion Device into Superior Vena Cava, Percutaneous Approach (ICD-10-PCS; principal; 2023-08-18)
PROC: 30233N1 Transfusion of Nonautologous Red Blood Cells into Peripheral Vein, Percutaneous Approach (ICD-10-PCS; 2023-08-20)
PROC: 30233J1 Transfusion of Nonautologous Serum Albumin into Peripheral Vein, Percutaneous Approach (ICD-10-PCS; 2023-08-23)
PROC: 02HV33Z Insertion of Infusion Device into Superior Vena Cava, Percutaneous Approach (ICD-10-PCS; 2023-08-25)
PROC: 0W9B30Z Drainage of Left Pleural Cavity with Drainage Device, Percutaneous Approach (ICD-10-PCS; 2023-08-25)
PROC: 3E033XZ Introduction of Vasopressor into Peripheral Vein, Percutaneous Approach (ICD-10-PCS; 2023-08-25)
PROC: 0JH63XZ Insertion of Tunneled Vascular Access Device into Chest Subcutaneous Tissue and Fascia, Percutaneous Approach (ICD-10-PCS; 2023-08-26)
PROC: 05HM33Z Insertion of Infusion Device into Right Internal Jugular Vein, Percutaneous Approach (ICD-10-PCS; 2023-08-26)
PROC: 0W9930Z Drainage of Right Pleural Cavity with Drainage Device, Percutaneous Approach (ICD-10-PCS; 2023-08-30)
DX: N99.521 Infection of incontinent external stoma of urinary tract (principal); A41.50 Gram-negative sepsis, unspecified; G93.41 Metabolic encephalopathy; N18.6 End stage renal disease; R65.20 Severe sepsis without septic shock; E87.20 Acidosis, unspecified; N17.9 Acute kidney failure, unspecified; N18.4 Chronic kidney disease, stage 4 (severe); E87.1 Hypo-osmolality and hyponatremia; I5A Non-ischemic myocardial injury (non-traumatic); I12.0 Hypertensive chronic kidney disease with stage 5 chronic kidney disease or end stage renal disease; N10 Acute pyelonephritis; J95.811 Postprocedural pneumothorax; Z16.35 Resistance to multiple antimicrobial drugs; D63.1 Anemia in chronic kidney disease; Z98.890 Other specified postprocedural states; C67.9 Malignant neoplasm of bladder, unspecified; I25.10 Atherosclerotic heart disease of native coronary artery without angina pectoris; I73.9 Peripheral vascular disease, unspecified; K21.9 Gastro-esophageal reflux disease without esophagitis; R53.81 Other malaise; I95.1 Orthostatic hypotension; D69.6 Thrombocytopenia, unspecified; I48.0 Paroxysmal atrial fibrillation; E87.5 Hyperkalemia; R31.9 Hematuria, unspecified; Z79.899 Other long term (current) drug therapy; Z90.89 Acquired absence of other organs
CPT/HCPCS: 36415; 36416; 36430; 50684; 70450; 71045; 74176; 74425; 76770; 80048; 80053; 81001; 82550; 82570; 82805; 83605; 83690; 83735; 83880; 84145; 84156; 84484; 85025; 86140; 86580; 86704; 86850; 86900; 86901; 87040; 87077; 87086; 87186; 90935; 93005; 93010; 93306; 94760; 96361; 96365; 96367; 96368; C1751; C1752; G0257; J0171; J0282; J0665; J0692; J0885; J1642; J1644; J2001; J2185; J2543; J2704; J2997; J3010; J3370-JW; J3490; J7030; J7070; J7120; P9016; P9047; Q5105; Q9967; S0028

== ENCOUNTER 2023-09-13 15:37 | Outpatient (CLI) | payer MEDICARE | END 2023-09-13 15:38 | disposition home or self-care (01) | LOC: RAD 15:37 | PROVIDERS: ATTEND Specialist | DX: J93.9 Pneumothorax, unspecified (principal); J98.4 Other disorders of lung; Z99.2 Dependence on renal dialysis | CPT/HCPCS: 71045 ==

== ENCOUNTER 2025-03-06 16:42 | Emergency (ER) | payer MEDICARE ==
[2025-03-06 19:57] LABS: Hematocrit 28.9 % (42.0-52.0); Hemoglobin 9.6 g/dL (14.0-18.0); Mean Corpuscular Hemoglobin 34.0 pg (27.0-31.0); Mean Corpuscular Volume 102.5 fL (78.0-98.0); Platelet Count 121 10x3/uL (130-400); Red Blood Cell (RBC) Count 2.82 mill/uL (4.70-6.10); White Blood Cell (WBC) Count 8.24 10x3/uL (4.8-10.8)
[2025-03-06 20:19] LABS: ALT (SGPT) Less than 7 U/L (Less than 45); AST (SGOT) 13 U/L (11-34); Albumin 3.1 g/dL (3.1-4.5); Alkaline Phosphatase 87 U/L (40-110); Anion Gap 15 mmol/L (10-20); BUN (Urea Nitrogen) 33 mg/dL (8.4-25.7); Bilirubin, Total 0.5 mg/dL (0.3-1.2); Calc. Creatinine Clearance 0 mL/min (70-130); Calcium 8.5 mg/dL (7.8-10.44); Carbon Dioxide 31 mmol/L (23-31); Chloride 96 mmol/L (98-107); Globulin 3.7 g/dL (2.4-3.5); Glucose 101 mg/dL (83-110); Lipase 23 U/L (8-78); Magnesium 2.0 mg/dL (1.6-2.6); Potassium 3.6 mmol/L (3.5-5.1); Sodium 138 mmol/L (136-145)
[2025-03-06 20:22] LABS: Macrocytosis SLIGHT = 6-15 cells HPF (0-5); Platelet Adequacy Comment Platelets Decreased; Polychromasia SLIGHT = 2-3 cells HPF (0-2); Smudge Cells 2.9 %
[2025-03-06 20:32] LABS: INR-International Normal Ratio 1.2; PTT 31.2 sec (22.9-36.1); Prothrombin Time 14.9 sec (12.0-14.7)
== END 2025-03-06 22:21 | disposition home or self-care (01) ==
LOC: ERS 16:42
DX: I48.0 Paroxysmal atrial fibrillation (principal); N18.6 End stage renal disease; Z99.2 Dependence on renal dialysis
CPT/HCPCS: 36415; 71045; 80053; 83690; 83735; 84443; 84484; 85025; 85610; 85730; 93005

== ENCOUNTER 2025-03-24 10:06 | Inpatient (IN) | payer MEDICARE ==
[2025-03-24 10:47] LABS: Hematocrit 33.0 % (42.0-52.0); Hemoglobin 10.5 g/dL (14.0-18.0); Mean Corpuscular Hemoglobin 33.8 pg (27.0-31.0); Mean Corpuscular Volume 106.1 fL (78.0-98.0); Platelet Count 113 10x3/uL (130-400); Red Blood Cell (RBC) Count 3.11 mill/uL (4.70-6.10); White Blood Cell (WBC) Count 18.25 10x3/uL (4.8-10.8)
[2025-03-24 10:47] LABS: Actual Bicarbonate (HCO3v) 24.0 mEq/L (22-28); Base Excess 0.0 mEq/L (-2.0 to +3.0); Calcium, Ionized (venous) 0.99 mmol/L (1.16-1.32); Chloride (VBG) 94 mmol/L (98-106); Hematocrit-VBG 34 % (42.0-52.0); Hemoglobin (Hb) 11.4 g/dL (12.6-17.4); Potassium (VBG) 4.31 mmol/L (3.70-5.30); Sodium 137 mmol/L (133-146)
[2025-03-24 10:55] LABS: INR-International Normal Ratio 1.3; Prothrombin Time 15.8 sec (12.0-14.7)
[2025-03-24 10:56] LABS: PTT 26.5 sec (22.9-36.1)
[2025-03-24 10:59] LABS: D-Dimer Test 2.2 mcg/mL (0.27-0.43)
[2025-03-24 11:08] LABS: Anisocytosis MARKED = >30 cells HPF (0-5); Burr Cells MODERATE= 6-15 cells HPF (0-1); Macrocytosis MODERATE=16-30 cells HPF (0-5); Ovalocytes SLIGHT = 2-5 cells HPF (0-1); Platelet Adequacy Comment Platelets Decreased; Poikilocytosis SLIGHT = 6-15 cells HPF (0-5); Polychromasia SLIGHT = 2-3 cells HPF (0-2)
[2025-03-24 11:12] LABS: #Basophils Less than 0.03 10x3/uL (0.0-0.2); #Eosinophils Less than 0.03 10x3/uL (0.0-0.7); #Monocytes 1.42 10x3/uL (0.11-0.59); #Neutrophils 16.14 10x3/uL (1.40-6.50); %Basophils 0.1 % (0.0-1.0); %Eosinophils 0.2 % (0.0-10.0); %Lymphocytes 3.0 % (21.0-51.0); %Monocytes 7.7 % (0.0-10.0); %Neutrophils 86.8 % (42.0-75.0)
[2025-03-24 11:21] LABS: Bacteria/HPF 2+ HPF (None Seen); CAUTI Indications for Culture Alt mental st,lethar; Glucose, Urine (Dipstick) Normal (Negative); Leukocyte 500 Leu/uL (Negative); Protein, Urine (Dipstick) 100 mg/dL (Neg-Trace); Specific Gravity, Urine 1.009 (1.002-1.036); WBC/HPF Greater than 50 HPF (0-3)
[2025-03-24 11:23] LABS: Urine Culture Reflex Yes Yes
[2025-03-24 11:26] LABS: Cocaine Metabolite Screen Negative (Negative); THC/Cannabinoid Screen Negative (Negative); Tricyclic Screen Negative (Negative)
[2025-03-24] MEDS ORDERED: Cefepime 2 GM VIAL ONE (11:31)
[2025-03-24 11:36] LABS: Acetaminophen Less than 10 mcg/mL (Less than 10); Lipase 19 U/L (8-78); Magnesium 2.2 mg/dL (1.6-2.6); Salicylate Less than 8.0 mg/dL (Less than 8.0)
[2025-03-24] MEDS ORDERED: Acetaminophen 325 MG TAB PO PRN (13:39)
[2025-03-24 14:15] LABS: ALT (SGPT) 27 U/L (Less than 45); AST (SGOT) 80 U/L (11-34); Albumin 2.5 g/dL (3.1-4.5); Alkaline Phosphatase 55 U/L (40-110); Anion Gap 16 mmol/L (10-20); BUN (Urea Nitrogen) 58 mg/dL (8.4-25.7); Bilirubin, Total 0.7 mg/dL (0.3-1.2); Calc. Creatinine Clearance 0 mL/min (70-130); Calcium 7.4 mg/dL (7.8-10.44); Carbon Dioxide 24 mmol/L (23-31); Chloride 103 mmol/L (98-107); Globulin 2.9 g/dL (2.4-3.5); Glucose 97 mg/dL (83-110); Potassium 3.1 mmol/L (3.5-5.1); Sodium 140 mmol/L (136-145)
[2025-03-24 16:04] LABS: Free T4 (Free Thyroxine) 1.20 ng/dL (0.70-1.48)
[2025-03-24] MEDS: Vancomycin 1.5 GM / NS 500ML VIAL-2-BAG IVPB SCH (16:12)
[2025-03-24 16:17] LABS: HBSAB Concentration 24.51 mIU/mL; Hep B Core Total Ab NONREACTIVE (NonReactive); Hep B Core Total Index 0.09 S/CO (0-0.79); Hep B Surf Ag NONREACTIVE S/CO (NonReactive); Hep C IgG Ab NONREACTIVE S/CO (NonReactive); Hep C Index 0.16 S/CO (0-0.79)
[2025-03-24] MEDS: PNEUMOC 20-VAL CONJ-DIP CRM/PF 0.5 ML SYRINGE IM ONE (18:31)
[2025-03-24] MEDS ORDERED: Vancomycin Diaylsis Sliding Scale (Wt 71-99) FS SCH (19:00)
[2025-03-24] MEDS ORDERED: Vancomycin 1 GM in Premix 1 BAG IVPB SCH (21:00)
[2025-03-25 03:15] LABS: Hematocrit 30.4 % (42.0-52.0); Hemoglobin 10.2 g/dL (14.0-18.0); Mean Corpuscular Hemoglobin 34.0 pg (27.0-31.0); Mean Corpuscular Volume 101.3 fL (78.0-98.0); Platelet Count 87 10x3/uL (130-400); Red Blood Cell (RBC) Count 3.00 mill/uL (4.70-6.10); White Blood Cell (WBC) Count 12.08 10x3/uL (4.8-10.8)
[2025-03-25 03:26] LABS: ALT (SGPT) 25 U/L (Less than 45); AST (SGOT) 52 U/L (11-34); Albumin 2.8 g/dL (3.1-4.5); Alkaline Phosphatase 58 U/L (40-110); Anion Gap 17 mmol/L (10-20); BUN (Urea Nitrogen) 31 mg/dL (8.4-25.7); Bilirubin, Total 0.8 mg/dL (0.3-1.2); Calc. Creatinine Clearance 14 mL/min (70-130); Calcium 8.7 mg/dL (7.8-10.44); Carbon Dioxide 25 mmol/L (23-31); Chloride 101 mmol/L (98-107); Globulin 3.5 g/dL (2.4-3.5); Glucose 85 mg/dL (83-110); Potassium 3.8 mmol/L (3.5-5.1); Sodium 139 mmol/L (136-145)
[2025-03-25 03:55] LABS: Platelet Adequacy Comment Platelets Decreased; RBC Morphology Within Normal Limits; Smudge Cells 5.0 %
[2025-03-25 04:46] VITALS: BMI 20.4
[2025-03-25 07:29] LABS: Vancomycin, Trough 13.3 ug/mL
[2025-03-25] MEDS: Famotidine/PF 20 mg/2ml Vial SLOW IVP SCH (12:20)
[2025-03-25] MEDS ORDERED: Vancomycin 1 GM in Premix 1 BAG IVPB SCH (17:00)
[2025-03-25] MEDS: Pantoprazole 40 MG DR.TAB PO SCH (17:27)
[2025-03-26 07:56] LABS: Hematocrit 34.9 % (42.0-52.0); Hemoglobin 11.4 g/dL (14.0-18.0); Mean Corpuscular Hemoglobin 33.7 pg (27.0-31.0); Mean Corpuscular Volume 103.3 fL (78.0-98.0); Platelet Count 82 10x3/uL (130-400); Red Blood Cell (RBC) Count 3.38 mill/uL (4.70-6.10); White Blood Cell (WBC) Count 12.22 10x3/uL (4.8-10.8)
[2025-03-26 08:44] LABS: Anisocytosis SLIGHT = 6-15 cells HPF (0-5); Burr Cells SLIGHT = 2-5 cells HPF (0-1); Macrocytosis SLIGHT = 6-15 cells HPF (0-5); Platelet Adequacy Comment Platelets Decreased; Polychromasia SLIGHT = 2-3 cells HPF (0-2); Smudge Cells 5.9 %
[2025-03-26] MEDS: Pantoprazole 40 MG DR.TAB PO SCH (09:14)
[2025-03-26 09:42] LABS: Anion Gap 16 mmol/L (10-20); BUN (Urea Nitrogen) 29 mg/dL (8.4-25.7); Calc. Creatinine Clearance 14 mL/min (70-130); Calcium 9.0 mg/dL (7.8-10.44); Carbon Dioxide 27 mmol/L (23-31); Chloride 99 mmol/L (98-107); Glucose 106 mg/dL (83-110); Potassium 3.6 mmol/L (3.5-5.1); Sodium 138 mmol/L (136-145)
[2025-03-27 04:37] LABS: Hematocrit 33.2 % (42.0-52.0); Hemoglobin 11.0 g/dL (14.0-18.0); Mean Corpuscular Hemoglobin 33.7 pg (27.0-31.0); Mean Corpuscular Volume 101.8 fL (78.0-98.0); Platelet Count 80 10x3/uL (130-400); Red Blood Cell (RBC) Count 3.26 mill/uL (4.70-6.10); White Blood Cell (WBC) Count 10.93 10x3/uL (4.8-10.8)
[2025-03-27 04:51] LABS: Anion Gap 20 mmol/L (10-20); BUN (Urea Nitrogen) 38 mg/dL (8.4-25.7); Calc. Creatinine Clearance 11 mL/min (70-130); Calcium 8.5 mg/dL (7.8-10.44); Carbon Dioxide 24 mmol/L (23-31); Chloride 102 mmol/L (98-107); Glucose 105 mg/dL (83-110); Potassium 3.6 mmol/L (3.5-5.1); Sodium 142 mmol/L (136-145)
[2025-03-27 05:08] LABS: Burr Cells SLIGHT = 2-5 cells HPF (0-1); Macrocytosis SLIGHT = 6-15 cells HPF (0-5); Platelet Adequacy Comment Platelets Decreased; Polychromasia SLIGHT = 2-3 cells HPF (0-2); Smudge Cells 3.0 %
[2025-03-27 09:09] VITALS: TEMP 97.6
[2025-03-27 16:12] VITALS: BP 152/86
== END 2025-03-27 18:12 | disposition hospice, home (50) | DRG 871 ==
LOC: ERS 10:06 → IMCU/EMU 14:18 → MSONC 03-26 20:33
PROVIDERS: ADMIT Internal Medicine; ATTEND Family Medicine
PROC: 3E03329 Introduction of Other Anti-infective into Peripheral Vein, Percutaneous Approach (ICD-10-PCS; principal; 2025-03-24)
PROC: 0T9B70Z Drainage of Bladder with Drainage Device, Via Natural or Artificial Opening (ICD-10-PCS; 2025-03-24)
DX: A41.59 Other Gram-negative sepsis (principal); G93.41 Metabolic encephalopathy; J18.9 Pneumonia, unspecified organism; J96.01 Acute respiratory failure with hypoxia; I50.33 Acute on chronic diastolic (congestive) heart failure; N18.6 End stage renal disease; I21.A1 Myocardial infarction type 2; N39.0 Urinary tract infection, site not specified; Z16.24 Resistance to multiple antibiotics; E87.20 Acidosis, unspecified; E16.2 Hypoglycemia, unspecified; D69.6 Thrombocytopenia, unspecified; D63.1 Anemia in chronic kidney disease; K21.9 Gastro-esophageal reflux disease without esophagitis; I25.10 Atherosclerotic heart disease of native coronary artery without angina pectoris; E03.9 Hypothyroidism, unspecified; I73.9 Peripheral vascular disease, unspecified; I48.0 Paroxysmal atrial fibrillation; Z85.828 Personal history of other malignant neoplasm of skin; Z85.51 Personal history of malignant neoplasm of bladder; Z99.2 Dependence on renal dialysis; Z90.6 Acquired absence of other parts of urinary tract; Z98.890 Other specified postprocedural states
CPT/HCPCS: 36415; 36416; 70450; 71045; 71275; 80048; 80053; 80202; 80306; 80307; 81001; 82805; 83605; 83690; 83735; 83880; 84439; 84443; 84484; 85025; 85379; 85610; 85730; 86704; 86706; 86803; 87040; 87086; 87340; 90935; 93005; 93306; 94640; 96365; 96366; 96367; 96375; G0257; J0692; J2185; J7030; J7042